=== PATIENT | male | born 1950 | race Caucasian/White ===

== ENCOUNTER 2017-08-13 13:15 | Day surgery (SDC) | payer MEDICARE ==
[~2017-08-13] VITALS: Ht 167.6 cm; Wt 79.0 kg
[~2017-08-13 13:15] MED LIST: ASPI81CH; CLON1; CYCL10; FAMO10; OXYC10ER
== END 2017-08-13 15:58 | disposition home or self-care (01) ==
LOC: ORSCSDS 13:15
PROVIDERS: Surgery
PROC: 0DJD8ZZ Inspection of Lower Intestinal Tract, Via Natural or Artificial Opening Endoscopic (ICD-10-PCS; principal; 2017-08-13 14:30)
DX: Z12.11 Encounter for screening for malignant neoplasm of colon (principal); F32.9 Major depressive disorder, single episode, unspecified; F41.9 Anxiety disorder, unspecified; E78.5 Hyperlipidemia, unspecified; I10 Essential (primary) hypertension; Z79.899 Other long term (current) drug therapy
CPT/HCPCS: J7120

== ENCOUNTER 2018-10-15 08:56 | Inpatient (IN) | payer MEDICARE, OTHER ==
[~2018-10-15] VITALS: Ht 170.2 cm; Wt 83.6 kg
[~2018-10-15 08:56] MED LIST changes: -ASPI81CH; +Aspirin EC81 MG PO; -CLON1; -CYCL10; +CYCL10 PO; -FAMO10; -OXYC10ER; +OXYC10TA19 PO
[2018-10-15 10:08] LABS: BASOPHILS ABSOLUTE AUTO 0.05 K/mm3 (0.00-0.23); BASOPHILS PERCENT AUTO 0 % (0-2); EOSINOPHILS PERCENT AUTO 0 % (0-6); Hematocrit 45.5 % (37.0-53.0); Hemoglobin 15.8 g/dL (13.5-17.5); IMMATURE GRAN ABSOLUTE AUTO 0.16 K/mm3 (0.00-0.10); IMMATURE GRAN PERCENT AUTO 1 % (0-1); LYMPHOCYTES PERCENT AUTO 4 % (21-46); MONOCYTES ABSOLUTE AUTO 0.98 K/mm3 (0.16-1.47); MONOCYTES PERCENT AUTO 4 % (4-13); Mean Corpuscular HGB 30.1 pg (26.0-34.0); Mean Corpuscular HGB Conc 34.7 g/dL (31.5-36.5); Mean Corpuscular Volume 87 fL (80-100); Mean Platelet Volume 10.9 fL (9.1-12.4); NEUTROPHILS ABSOLUTE AUTO 22.69 K/mm3 (1.96-9.15); NEUTROPHILS PERCENT AUTO 92 % (41-73); Platelet Count 190 K/mm3 (150-400); RDW Coefficient Variation 11.8 % (11.7-14.2); RDW Standard Deviation 37.3 fL (35.1-46.3); Red Blood Cell Count 5.25 M/mm3 (4.30-5.90); White Blood Cell Count 24.78 K/mm3 (4.00-11.30)
[2018-10-15 10:18] LABS: Alanine Aminotransfer (ALT/SGP 26 U/L (12-78); Albumin, Blood 3.9 g/dL (3.4-5.0); Albumin/Globulin Ratio 1.2 (0.8-1.8); Alk Phos 45 U/L (50-136); Anion Gap 9 mmol/L (6-16); Aspartate Aminotrans (AST/SGOT 23 U/L (12-37); Bilirubin, Total 1.7 mg/dL (0.1-1.0); Blood Urea Nitrogen 11 mg/dL (8-24); Bun/Creatinine Ratio 16.6 (12.0-20.0); CO2, Blood 27 mmol/L (21-32); Calcium, Blood 8.4 mg/dL (8.5-10.1); Chloride, Blood 97 mmol/L (98-108); Creatinine, Blood 0.66 mg/dL (0.60-1.20); Globulin, Blood 3.2 g/dL (2.2-4.0); Glomerular Filtration Rate >60 (60-); Glucose, Blood 166 mg/dL (70-99); Potassium, Blood 3.9 mmol/L (3.5-5.5); Sodium, Blood 133 mmol/L (136-145); Total Protein, Blood 7.1 g/dL (6.4-8.2); Troponin I 0.208 ng/mL (0.000-0.040)
[2018-10-15] MEDS ORDERED: CLON1 PO (12:51)
[2018-10-15] MEDS ORDERED: FAMO20 PO (12:52)
[2018-10-15] MEDS ORDERED: CITA20 PO (12:54)
[2018-10-15] MEDS ORDERED: TAMS.4ER PO (12:54)
[2018-10-15] MEDS ORDERED: BACL10 PO (13:46)
[2018-10-15] MEDS ORDERED: Milk Thistle500 MG PO (13:47)
[2018-10-15] MEDS ORDERED: Fish Oil 10001000 MG PO (13:47)
[2018-10-15] MEDS ORDERED: CYCL10 PO (15:45)
--- NOTE | 2018-10-15 16:15 | NUR ---
Echocardiogram completed.
--- NOTE | 2018-10-15 18:51 | NUR ---
PT TRANSFERRED TO ICU 12 FROM PCU 6 AFTER HAVING KARINA DRAIN PLACED. DARK RED DRAINAGE NOTED. ABDOMEN FIRM AND TENDER. PT ALSO C/O RIGHT SHOULDER PAIN. AT BEDSIDE. VSS AT THIS TIME. 1 IV NOTED. WEDDING PHOTOGRAPHER AWARE.
--- NOTE | 2018-10-15 19:26 | NUR ---
ASSUMED PT CARE AT 1900; BEDSIDE REPORT GIVEN PT CAME TO ICU POST PERCUTANEOUS CHOLECYSTOSTOMY. DRAIN IN PLACE AND DRAINING MODERATE AMOUNTS OF SANGUINEOUS FLUID. PT CURRENTLY BEING MEDICATED BY DAY RN WITH FENTANYL FOR ABDOMINAL AND RIGHT SHOULDER PAIN. PT HAS AN ICE PACK TO RIGHT SHOULDER. PT DENIES ANY CHEST PAIN; AND STATES HE HASN'T HAD ANY CHEST PAIN AT ALL. PT IS ALERT AND ORIENTED AND ABLE TO MAKE NEEDS KNOWN. AT BEDSIDE. PT HAS BEEN PLEASANT AND COOPERATIVE WITH CARE. PT STATES HE IS VERY HUNGRY BUT IS NPO STATUS. WILL CALL DR. STRICKLAND D/T NO AVAILABLE NOTE REGARDING ANY CARDIOLOGY INTERVENTIONS OR GOING TO IRON ASSORTER IN THE AM.
--- NOTE | 2018-10-15 19:45 | NUR ---
PT C/O SEVERE ABDOMINAL PAIN; STATED FENTANYL 25MCG WAS UNEFFECTIVE. MEDICATED WITH ANOTHER 25MCG OF FENTANYL ORDERS STATED 25-50MCG Q4HRS PRN; PLACED CALL TO DAVID SALGADO NP WHO GAVE ORDERS TO INCREASE FREQUENCY TO Q2HRS PRN.
--- NOTE | 2018-10-15 20:08 | NUR ---
PT CONTINUES WITH SIGNIFICANT PAIN. VERY RESTLESS IN BED; NEEDING TO SIT ON THE SIDE OF BED, TRYING TO WALK AROUND TO RELIEVE HIS PAIN. CALLED DAVID SALGADO NP AGAIN IN REGARDS TO SIGNIFICANT PAIN THAT HAS BEEN UNRELIEVED BY 50MCG OF FENTANYL IN THE LAST HOUR. INFORMED DAVID THAT DRAIN HAS BEEN DRAINING, PT'S PAIN ISN'T ANY WORSE OR BETTER SINCE DRAIN HAS BEEN PLACED, AND THAT THE PLAN IS TO REMOVE GALLBLADDER AFTER PT GOES TO [employer]PER[employer]OR FILES WHEN WBC IS LESS THAN 20. NEW ORDERS TO D/C FENTANYL AND GIVE DILAUDID 0.5-1MG Q2HRS PRN PAIN. WILL CONTINUE TO MONITOR FOR EFFECTIVENESS REGARDING PAIN MANAGEMENT INTERVENTIONS.
--- NOTE | 2018-10-15 21:21 | NUR ---
CALL PLACED TO DAVID SALGADO NP REGARDING PT'S CONSTANT PAIN WITH MINIMAL RELIEF FROM 1MG OF DILAUDID. PT IS ABLE TO TALK IN COMPLETE SENTENCES NOW AND STATES THAT HIS PAIN HAS GONE FROM 10/10 TO 7/10; HOWEVER, GRIMACING NOTED, AND PT IS STILL GUARDING ABDOMEN. GAVE PT A PILLOW TO SPLINT WITH WHILE BREATHING HE IS NOTED TO HAVE RAPID, SHALLOW BREATHING WITH OXYGEN SATURATIONS DECREASING TO LOW 87%. ENCOURAGED PT TO TAKE SLOW, DEEP BREATHS. HR REMAINS ELEVATED IN THE 110'S WITH BP SLOWLY INCREASING AND CURRENTLY SBP'S IN THE 150-160'S. AWAITING CALL BACK FROM DAVID REGARDING PAIN MANAGEMENT INTERVENTION.
--- NOTE | 2018-10-15 22:01 | NUR ---
DAVID BAZAN CALLED BACK AND REFERRED ME TO CALL GENERAL SURGEON REGARDING INCREASED, UNRELIEVED PAIN. CALLED DR. NETTLES AND UPDATED REGARDING PT'S UNCONTROLLED PAIN AND ALL INTERVENTIONS ATTEMPTED. UPDATED REGARDING MODERATE AMOUNTS OF SANGUINEOUS DRAINAGE; 200CC TOTAL FROM POST PROCEDURE TO 2100 WHEN IT WAS DRAINED. READ HEMODYNAMIC REPORT REGARDING DRAIN PLACEMENT AND CONFIRMATION OF DRAIN, WELL CONFIRMED THAT THERE WASN'T ANY DOCUMENTATION REGARDING OUTPUT FROM PLACEMENT OF DRAIN DURING PROCEDURE. NEW ORDERS FROM DR. NETTLES FOR SOAPING MACHINE BACK TENDER PUMP OF DILAUDID PER HIS PROTOCOL ORDERS FOR PATIENTS WHO ARE OVER THE AGE OF 64. CALLED SURGICAL FLOOR FOR COPY OF ORDERS. ORDERS WERE SENT AND ENTERED. WAITING ON PHARMACY TO CALL IN REGARDS TO SOAPING MACHINE BACK TENDER BEING READY.
--- NOTE | 2018-10-15 23:31 | NUR ---
ELISA SANCHEZ ASSISTED WITH SETTING UP FLY MAKER PUMP AND PROGRAMMING FLY MAKER ORDERS FOR DILAUDID. ELISA SANCHEZ VERIFIED PROCESS FROM START TO FINISH. PT WAS MEDICATED WITH ANOTHER 1MG OF DILUADID AT 2220 WHEN HE WAS DUE FOR PAIN MEDICATION FROM DAVID SALGADO NP ORDERS D/T WAIT TIME FOR FLY MAKER MEDICATION AND SET UP TIME. PT APPEARED MORE RELAXED AFTER ADMINISTRATION; HE WAS ABLE TO DEEP BREATHE WITHOUT ANY PAIN, HIS HR DECREASED TO LOW 100'S, AND HIS RESP RATE DECREASED FROM 30'S TO 20'S. PT VERBALIZED HIS RELIEF AND STATED HIS PAIN WENT FROM A 9/10 TO A 7/10. AFTER SET UP OF FLY MAKER PUMP; PT RECEIVED A LOADING DOSE OF 0.4MG. AFTER ABOUT 15 MINUTES OF FLY MAKER PUMP CONNECTED TO PT; PT CLAIMED HIS PAIN LEVEL WAS 2/10. PT HAS CONTROL OF FLY MAKER CONTROLLER; NO CONTINUOUS RATE PROGRAMMED. EDUCATED REGARDING HOW TO ADMINISTER MEDICATION AND THE PURPOSE OF FLY MAKER PUMP. PT VERBALIZED UNDERSTANDING AND STATED HE HAD ONE IN THE PAST AFTER HIS BACK SURGERIES. PT WAS ABLE TO DEMONSTRATE WHAT BUTTON TO PUSH WHEN HE NEEDED IT. AFTER ABOUT 30 MINUTES OF FLY MAKER PUMP CONNECTED PT WAS SOUND ASLEEP; HOWEVER, HE IS EASILY AROUSABLE. WILL CONTINUE TO MONITOR PAIN MANAGEMENT AND EFFECTIVENESS.
--- NOTE | 2018-10-16 01:03 | NUR ---
PT CONTINUES TO BE EASY TO AROUSE. DENIES ANY PAIN. WIPED OFF NITROQUICK OINMENT FROM LEFT UPPER CHEST D/T BLOOD PRESSURES SLOWLY DECREASING WITH MAP'S AROUND 60-65. INFORMED PT TO NOTIFY ME WITH ANY COMPLAINTS OF CHEST PAIN; PT ABLE TO VERBALIZE.
[2018-10-16 04:11] LABS: BASOPHILS ABSOLUTE AUTO 0.07 K/mm3 (0.00-0.23); BASOPHILS PERCENT AUTO 0 % (0-2); EOSINOPHILS PERCENT AUTO 0 % (0-6); Hematocrit 42.4 % (37.0-53.0); Hemoglobin 14.4 g/dL (13.5-17.5); IMMATURE GRAN ABSOLUTE AUTO 0.33 K/mm3 (0.00-0.10); IMMATURE GRAN PERCENT AUTO 1 % (0-1); LYMPHOCYTES ABSOLUTE AUTO 1.07 K/mm3 (0.84-5.20); LYMPHOCYTES PERCENT AUTO 4 % (21-46); MONOCYTES ABSOLUTE AUTO 0.97 K/mm3 (0.16-1.47); MONOCYTES PERCENT AUTO 4 % (4-13); Mean Corpuscular HGB 30.8 pg (26.0-34.0); Mean Corpuscular Volume 91 fL (80-100); Mean Platelet Volume 11.1 fL (9.1-12.4); NEUTROPHILS ABSOLUTE AUTO 24.39 K/mm3 (1.96-9.15); NEUTROPHILS PERCENT AUTO 91 % (41-73); Platelet Count 147 K/mm3 (150-400); RDW Coefficient Variation 12.5 % (11.7-14.2); RDW Standard Deviation 40.5 fL (35.1-46.3); Red Blood Cell Count 4.68 M/mm3 (4.30-5.90); White Blood Cell Count 26.83 K/mm3 (4.00-11.30)
[2018-10-16 04:33] LABS: Alanine Aminotransfer (ALT/SGP 24 U/L (12-78); Albumin, Blood 3.3 g/dL (3.4-5.0); Albumin/Globulin Ratio 1.1 (0.8-1.8); Alk Phos 35 U/L (50-136); Anion Gap 6 mmol/L (6-16); Aspartate Aminotrans (AST/SGOT 20 U/L (12-37); Bilirubin, Total 3.3 mg/dL (0.1-1.0); Blood Urea Nitrogen 16 mg/dL (8-24); Bun/Creatinine Ratio 16.2 (12.0-20.0); CO2, Blood 28 mmol/L (21-32); Chloride, Blood 100 mmol/L (98-108); Creatinine, Blood 0.99 mg/dL (0.60-1.20); Globulin, Blood 2.9 g/dL (2.2-4.0); Glomerular Filtration Rate >60 (60-); Glucose, Blood 118 mg/dL (70-99); Potassium, Blood 4.4 mmol/L (3.5-5.5); Sodium, Blood 134 mmol/L (136-145); Total Protein, Blood 6.2 g/dL (6.4-8.2)
--- NOTE | 2018-10-16 05:59 | NUR ---
END OF SHIFT SUMMARY PT CONTINUES ON RESEARCH NURSE DILAUDID PUMP WITH SIGNIFICANT IMPROVEMENT; PT'S PAIN LEVEL IS CURRENTLY AT 2/10. PT ABLE TO DEMONSTRATE ACCURATE USE OF RESEARCH NURSE PUMP. HOWEVER, HE DID MAKE A COUPLE VERBAL STATEMENTS REGARDING NOT WANTING TO PUSH IT TOO MUCH BECAUSE HE DIDN'T WANT TO "LOSE IT"; EDUCATED PT THAT HE WASN'T GOING TO LOSE THE PAIN MEDICATION AND HE COULD PRESS IT EVERY TEN MINUTES IF NEEDED DUE TO PAIN; PT VERBALIZED UNDERSTANDING. CLEARED END OF SHIFT TOTALS FROM RESEARCH NURSE WITH ELISA CHIRINOS. PERCUTANEOUS CHOLECYSTOSTOMY STILL IN PLACE AND DRAINING MODERATE AMOUNTS OF SANGUINEOUS DRAINAGE WITH A YELLOW TINT NOTED TO THE DRAINAGE BAG; TOTAL OF 400CC COUNTED FOR THIS SHIFT. ABDOMEN REMAINS MODERATELY DISTENDED, FIRM AND TENDER UPON PALPATION; MAINLY TO RUQ, BUT DIFFUSE TENDERNESS NOTED WELL. PT STATES HE HASN'T HAD A BM IN 3 DAYS. ENCOURAGED PT TO BSC TO ATTEMPT BM; PT WAS UNSUCCESSFUL, BUT WAS ABLE TO VOID. PT DISPLAYED URINARY RETENTION ISSUES T/O SHIFT WITH MINIMAL AMOUNTS VOIDED. STATES HE TAKES FLOMAX AT HOME. WILL PASS ON TO DAY SHIFT RN REGARDING ADDRESSING BOWEL CARE MEDS AND FLOMAX WITH PHYSICIAN. WILL CONTINUE TO MONITOR UNTIL REPORT IS HANDED OFF TO ONCOMING RN.
--- NOTE | 2018-10-16 15:49 | NUR ---
PT IS A/O ON MINER HELPER DILAUDID GTT WITH PAIN CURRENTLY MANNAGED. PT NOTED SOME ABD BLOTTING AND IS HAVING PAIN WITH MOVEMENT, BUT IS MANNAGED PER PT WITH MINER HELPER. PT VS NOTED. KARINA DRAIN ON R SITE IS PATENT AND DRAINING BLOODY/BILE COLORED DRAINAGE. PT IS NOT HAVING SEVER DISTRESS AND IS ABLE TO MOVE AND TALK WHILE LEFT ALONE. PT HAS PAS. IVF LR AT 100ML/HOUR WITH TKO NS AND MINER HELPER FLUIDS. PT IS IN NO RESP DISTRESS AND HAVE LOWERED O2 AND WILL CONSIDER D/C LATER. PT HAS BEEN UP TO BSC WITH STANDBY ASSIST TO VOID.
--- NOTE | 2018-10-16 18:56 | NUR ---
PT IS RESTING WELL THIS DAY BUT CONT. TO HAVE SOME PAIN AND IS ALSO HAVING PO PAIN MEDS ADDED. DRAIN CONT TO LOOK BLOODY BUT IS BILE COLOR IN NATURE ALSO. VS AND I/O NOTED.
--- NOTE | 2018-10-16 23:17 | NUR ---
ASSUMED PT CARE AT 1915 PT SITTING UP IN BED TALKING WITH FAMILY AT CHANGE OF SHIFT. APPEARS IN GOOD SPIRITS. CONTINUES ON VACUUM CLEANER MECHANIC DILAUDID; PT STATES IT HAS BEEN EFFECTIVE WITH MANAGING PAIN. PT STATED HE RECEIVED A DOSE OF NORCO TO HELP WITH THE TRANSITION OFF THE PUMP; HOWEVER, IT UPSET HIS STOMACH. EDUCATED HIM TO ENSURE HE EATS SOMETHING AT LEAST 30 MINUTES PRIOR TO TAKING NORCO; PT VERBALIZED UNDERSTANDING. PERCUTANEOUS CHOLECYSTOSTOMY DRAIN IN PLACE WITH WITH MINIMAL AMOUNTS OF SANGUINEOUS DRAINAGE WITH YELLOW RESIDUAL NOTED TO BAG. EDUCATED PT REGARDING SELF CARE WITH DRAINAGE BAG AND THAT HE WOULD BE THE ONE EMPTYING IT TONIGHT WITH VERBAL DIRECTIONS AND GUIDANCE FROM ME. PT DEMONSTRATED VERBAL UNDERSTANDING. NO SIGNIFICANT CHANGES AT THIS TIME. CALL LIGHT IS WITHIN REACH. PT ABLE TO MAKE NEEDS KNOWN.
[2018-10-17 04:47] LABS: BASOPHILS ABSOLUTE AUTO 0.03 K/mm3 (0.00-0.23); BASOPHILS PERCENT AUTO 0 % (0-2); EOSINOPHILS ABSOLUTE AUTO 0.05 K/mm3 (0.00-0.68); EOSINOPHILS PERCENT AUTO 0 % (0-6); Hemoglobin 12.5 g/dL (13.5-17.5); IMMATURE GRAN PERCENT AUTO 1 % (0-1); LYMPHOCYTES ABSOLUTE AUTO 1.03 K/mm3 (0.84-5.20); LYMPHOCYTES PERCENT AUTO 7 % (21-46); MONOCYTES ABSOLUTE AUTO 0.58 K/mm3 (0.16-1.47); MONOCYTES PERCENT AUTO 4 % (4-13); Mean Corpuscular HGB 30.6 pg (26.0-34.0); Mean Corpuscular HGB Conc 33.8 g/dL (31.5-36.5); Mean Corpuscular Volume 91 fL (80-100); Mean Platelet Volume 11.2 fL (9.1-12.4); NEUTROPHILS ABSOLUTE AUTO 14.15 K/mm3 (1.96-9.15); NEUTROPHILS PERCENT AUTO 89 % (41-73); Platelet Count 116 K/mm3 (150-400); RDW Coefficient Variation 12.1 % (11.7-14.2); RDW Standard Deviation 40.9 fL (35.1-46.3); Red Blood Cell Count 4.08 M/mm3 (4.30-5.90); White Blood Cell Count 15.94 K/mm3 (4.00-11.30)
[2018-10-17 05:02] LABS: Albumin, Blood 2.8 g/dL (3.4-5.0); Anion Gap 2 mmol/L (6-16); Blood Urea Nitrogen 14 mg/dL (8-24); Bun/Creatinine Ratio 18.4 (12.0-20.0); CO2, Blood 34 mmol/L (21-32); Calcium, Blood 8.3 mg/dL (8.5-10.1); Chloride, Blood 99 mmol/L (98-108); Creatinine, Blood 0.76 mg/dL (0.60-1.20); Glomerular Filtration Rate >60 (60-); Glucose, Blood 140 mg/dL (70-99); Phosphorus, Blood 1.7 mg/dL (2.5-4.9); Potassium, Blood 3.8 mmol/L (3.5-5.5); Sodium, Blood 135 mmol/L (136-145)
--- NOTE | 2018-10-17 05:28 | NUR ---
END OF SHIFT SUMMARY PT HAS REMAINED PLEASANT AND COOPERATIVE T/O SHIFT. PAIN HAS BEEN WELL CONTROLLED AND MANAGED. CLEARED 1MG FROM [employer] SAL[employer] FOR ENTIRE SHIFT. OFFERED PT NORCO INSTEAD OF CONTINUING WITH LIFE INSURANCE SALES TO SEE IF WE COULD TRANSITION HIM AND HE STATED HE WOULD PREFER TO WAIT UNTIL AFTER BREAKFAST IT UPSET HIS STOMACH LAST TIME. ABDOMEN CONTINUES TO BE DISTENDED, FIRM, AND TENDER UPON PALPATION. ADMINISTERED MOM AT HS ALONG WITH COLACE AND SENNA; HOWEVER, UNEFFECTIVE. PT HAS BEEN UP TO THE BEDSIDE COMMODE MULTIPLE TIMES TO ATTEMPT BM; HOWEVER, WAS ONLY ABLE TO PASS GAS AND URINATE. NO C/O CHEST PAIN. LR CONTINUES AT 100MLS/HR VIA POWERGLIDE TO HANY. PT REQUIRED 2L OF OXYGEN T/O NIGHT D/T OXYGEN SATURATIONS DECREASING TO HIGH 80'S WHEN HE SLEEPS; DOES NOT REQUIRE OXYGEN WHILE AWAKE. CALL LIGHT WITHIN REACH; PT ABLE TO MAKE HIS NEEDS KNOWN; WILL CONTINUE TO MONITOR UNTIL REPORT IS HANDED OFF TO ONCOMING RN.
--- NOTE | 2018-10-17 09:00 | NUR ---
CARE ASSUMED CARE AND REPORT ASSUMED FROM VENITA PÉREZ. PT SITTING UP IN BED. C/O MILD PAIN TO ABDOMEN ALONG WITH DISTENTION. DILAUDID PIPE MAKER FOR USE; PT AWARE OF HOW TO USE IT. LR INFUSING AT 100 ML/HR PER ORDER. VSS. BP 130S/70S. NSR, HR 70S. ABLE TO STAND AT BEDSIDE AND VOID IN URINAL. WILL CONTINUE TO MONITOR.
--- NOTE | 2018-10-17 11:49 | NUR ---
REASSESSMENT INSIGHTS STRATEGIST DISCONTINUED. PT TOLERATING SITTING IN CHAIR. OXYCODONE PO GIVEN FOR PAIN CONTROL. VSS. NSR, HR 60-70S. AFEBRILE. PT AMBULATORY IN ROOM WITH MINIMAL ASSISTANCE. MIV DISCONTINUED. PT C/O MILD NAUSEA AFTER BREAKFAST; ZOFRAN GIVEN AND NAUSEA IMPROVED. WILL CONTINUE TO MONITOR.
--- NOTE | 2018-10-17 15:53 | NUR ---
REASSESSMENT PT AMBULATED WITH WALKER TO SHOWER AND WAS ABLE TO SHOWER WITHOUT ASSISTANCE. VSS. NSR, HR 70S. SITTING UP IN BED. DRAIN IN RLQ DRAINING WELL. WILL CONTINUE TO MONITOR.
--- NOTE | 2018-10-17 17:41 | NUR ---
SHIFT SUMMARY GAS FURNACE INSTALLER DISCONTINUED TODAY AND MIV DISCONTINUED. RECEIVED SHOWER AND HAD NO DIFFICULTY AMBULATING WITH WALKER. VSS ENTIRE SHIFT. RECIEVED OXUYCODONE PO NEEDED. WILL GIVE BEDSIDE HANDOFF REPORT TO NACHO RN.
--- NOTE | 2018-10-17 19:30 | NUR ---
ASSUMED PT CARE AT 1915 PT RESTING IN BED, ALERT AND ORIENTED, AND ABLE TO MAKE NEEDS KNOWN. DRAIN IN PLACE AND CONTINUES TO DRAIN MODERATE AMOUNTS OF SANGUINEOUS DRAINAGE WITH YELLOW RESIDUAL NOTED TO BAG. PT TRANSITIONED FROM POLITICAL SCIENCE FACULTY MEMBER PUMP OF DILAUDID TO ORAL OXYCODONE, WHICH HE STATES HAS BEEN EFFECTIVE MANAGING HIS PAIN; STATES HE IS A 2/10 CURRENTLY. GOAL IS TO DISCHARGE HOME TOMORROW. WILL CONTINUE DRAIN MANAGEMENT EDUCATION. NO SIGNIFICANT CHANGES TO REPORT AT THIS TIME.
--- NOTE | 2018-10-18 06:40 | NUR ---
END OF SHIFT SUMMARY PAIN HAS BEEN WELL MANAGED T/O SHIFT. REQUESTED ONE PRN OXYCODONE 10MG PER ORDERS AT 0430. CHOLECYSTOSTOMY DRAIN CONTINUES TO DRAIN MODERATE AMOUNTS OF SANGUINEOUS MIXED WITH YELLOW/BILE DRAINAGE. PT HAS BEEN EDUCATED REGARDING DRAIN CARE AND IS ABLE TO VERBALIZE, WELL DEMONSTRATE UNDERSTANDING. PT HAS BEEN INDEPENDENT WITH REPOSITIONING T/O NIGHT. CALL LIGHT LEFT WITHIN REACH FOR OTHER NEEDS. WILL CONTINUE TO MONITOR UNTIL REPORT IS HANDED OFF TO ONCOMING RN.
--- NOTE | 2018-10-18 07:54 | NUR ---
ASSUMED CARE NOTE REPORT RECEIVED FROM ELISA NATHAN. BEDSIDE ROUNDING DONE. PT SITTING UP IN BED. PT VERY TALKATIVE. CHOLECYSTOSTOMY DRAIN EMPTIED BY PT WITH EDUCATION AND INSTRUCTION PROVIDED BY THIS RN. PT ALERT AND ORIENTED, COOPERATIVE WITH CARE. PT DENIES ANY PAIN OR DISCOMFORT AT THIS TIME, REQUESTING ONLY 1 TABLET OF HIS OXYCODONE WHEN IT IS DUE NEXT. CALL LIGHT IN REACH. WILL CONT TO MONITOR PT.
--- NOTE | 2018-10-18 08:10 | NUR ---
DR CRUZ ROUNDS DR CRUZ ROUNDED, PLAN FOR PT TO BE D/C. AWAITING ORDERS. NO FURTHER CHANGES TO PLAN OF CARE AT THIS TIME. WILL CONT TO MONITOR PT.
[2018-10-18] MEDS ORDERED: ASPI81CH PO (09:13)
[2018-10-18] MEDS ORDERED: Lopressor 25 mg25 MG PO (09:17)
[2018-10-18] MEDS ORDERED: Augmentin 875-1 EACH PO (09:18)
--- NOTE | 2018-10-18 10:32 | NUR ---
CALL TO DR DEEPA RICKETTS, RN PLACED CALL TO DR ARENAS REGARDING APPROVAL FOR D/C. PER DR ARENAS PT CLEAR FOR D/C HOME WITH PLAN TO F/U WITH DR NETTLES WITHIN 2 WEEKS.
--- NOTE | 2018-10-18 12:16 | NUR ---
D/C NOTE PT D/C HOME WITH DRIVING. D/C PAPERWORK REVIEWED WITH PT AND , PT VERBALIZED UNDERSTANDING. PT INFORMED THAT PRESCRIPTIONS FAXED TO PREFERRED PHARMACY AT [facility] IN [place], PT'S REPORTED THAT SHE ALREADY PICKED THEM UP ON HER WAY IN. PT AND EDUCATED AND INSTRUCTED ON CHOLECYSTOSTOMY DRAIN MANAGEMENT, RETURN DEMONSTRATION PERFORMED. PT PROVIDED WITH CLEAN CANISTER TO EMPTY CHOLECYSTOSTOMY DRAIN CONTENTS INTO AND MEASURE PRN. PT INFORMED OF F/U APPOINTMENTS WITH DR NETTLES AND WARD NURSE, PT VERBALIZED UNDERSTANDING. PT INFORMED OF NEED TO SCHEDULE F/U APPOINTMENT WITH PCP JENNY, PT VERBALIZED UNDERSTANDING AND INTENTION TO DO SO FIRST THING Sunday. POWERGLIDE D/C WITHOUT EVENT, CATHETER INTACT. PT ASSISTED WITH DRESSING AND INTO WHEELCHAIR. PT ESCORTED TO HOSPITAL ENTRANCE BY YVONNE MAYORGA VIA WHEELCHAIR. ALL BELONGINGS WITH PT AT TIME OF D/C. NO S/SX DISTRESS AT TIME OF D/C.
[2018-10-29] MEDS ORDERED: FAMO20 PO (10:58)
[2018-10-29] MEDS ORDERED: CITA20 PO (10:58)
[2018-10-29] MEDS ORDERED: CLON1 PO (10:58)
[2018-10-29] MEDS ORDERED: FURO40 PO (10:59)
[2018-10-29] MEDS ORDERED: TAMS.4ER PO (10:59)
[2018-10-29] MEDS ORDERED: BACL10 PO (11:00)
[2018-10-29] MEDS ORDERED: OXYC10TA19 PO (11:01)
[2018-10-29] MEDS ORDERED: FISH OIL PO (11:16)
[2018-10-29] MEDS ORDERED: Milk Thistle150 MG PO (11:20)
[2018-10-29] MEDS ORDERED: SAW PALMETTO PO (11:20)
[2018-10-29] MEDS ORDERED: L-Lysine500 M1 PO (11:21)
[2018-10-29] MEDS ORDERED: Citrucel500 MG PO (11:21)
[2018-10-29] MEDS ORDERED: Nizoral120 M1 TOP (11:22)
[2018-10-29] MEDS ORDERED: NARCAN (11:24)
== END 2018-10-18 12:15 | disposition home or self-care (01) | DRG 872 ==
LOC: ER 08:56 → PCU 12:57 → ICUW 15:11
PROVIDERS: Emergency Medicine; ADMIT Family Medicine
PROC: 0F9430Z Drainage of Gallbladder with Drainage Device, Percutaneous Approach (ICD-10-PCS; principal; 2018-10-16)
DX: A41.9 Sepsis, unspecified organism (principal); K81.0 Acute cholecystitis; E87.2 Acidosis; I24.8 Other forms of acute ischemic heart disease; E87.1 Hypo-osmolality and hyponatremia; Z79.82 Long term (current) use of aspirin; R65.20 Severe sepsis without septic shock; I10 Essential (primary) hypertension; F41.8 Other specified anxiety disorders; E78.5 Hyperlipidemia, unspecified; I73.00 Raynaud's syndrome without gangrene; R74.8 Abnormal levels of other serum enzymes; D69.6 Thrombocytopenia, unspecified; E83.39 Other disorders of phosphorus metabolism; G14 Postpolio syndrome
CPT/HCPCS: 36415; 47490; 71045; 74177; 80053; 80069; 83605; 83690; 84484; 85025; 87040; 93005; 93010; 93306; 96361-59; 96365-59; 96375-59; 96376-59; 99152; 99153; 99285-25; A9270-GY; C1729; C1751; C1769; C1894; J0360; J0780; J1170; J1650; J2060; J2250; J2405; J2543; J3010; J7030; J7040; J7050; J7120; Q9967

== ENCOUNTER 2018-10-31 06:01 | Day surgery (SDC) | payer MEDICARE, SELFPAY ==
[~2018-10-31] VITALS: Ht 167.6 cm; Wt 77.3 kg
[~2018-10-31 06:01] MED LIST changes: +ASPI81CH PO; +Augmentin 875-1 EACH PO; +BACL10 PO; +CITA20 PO; +CLON1 PO; +Citrucel500 MG PO; +FAMO20 PO; +FISH OIL PO; +FURO40 PO; +Fish Oil 10001000 MG PO; +L-Lysine500 M1 PO; +Lopressor 25 mg25 MG PO; +Milk Thistle150 MG PO; +Milk Thistle500 MG PO; +NARCAN; +Nizoral120 M1 TOP; +SAW PALMETTO PO; +TAMS.4ER PO
--- NOTE | 2018-10-31 06:50 | NUR ---
PT ADMITTED TO [facility]. AGREES WITH PLANNED SURGERY. PT VERY TALKATIVE. LUNG SOUNDS CLEAR.
--- NOTE | 2018-10-31 08:01 | NUR ---
10/31/18 0801 Soco Perez PT BROUGHT TO OR 2. WHEN DR MARTINEZ WAS ABOUT TO INTUBATE THE PT HE NOTICED A MASS IN THE PT THROAT. DR NETTLES IN THE ROOM. THE GLIDE SCOPE WAS BROUGHT IN THE ROOM TO BETTER SEE THE MASS. IT WAS DECIDED BY DR MARTINEZ AND DR NETTLES TO ABORT THE CASE.
--- NOTE | 2018-10-31 09:04 | NUR ---
VERBAL DISCHARGE INSTRUCTIONS COMPLETE. PT ALERT AND ORIENTED. TAKING PO FLUIDS WELL. IV DC'D INTACT.
== END 2018-10-31 09:15 | disposition home or self-care (01) ==
LOC: ORSCMMR 06:01 → ORD 07:30 → ORSCMMR 07:30
DX: K81.2 Acute cholecystitis with chronic cholecystitis (principal); Z53.8 Procedure and treatment not carried out for other reasons
CPT/HCPCS: 93005; 93010; J1100; J2250; J2405; J2543; J2704; J2710; J3010; J7030; J7120

== ENCOUNTER 2018-11-11 06:16 | Day surgery (SDC) | payer MEDICARE, SELFPAY ==
[~2018-11-11] VITALS: Ht 170.2 cm; Wt 77.2 kg
--- NOTE | 2018-11-11 07:49 | NUR ---
11/11/18 [address] POLLACK ORDERS, GAVE 3ML 4% LIDOCAINE NEBULIZER AND 2PUFFS AFRIN EACH NARES JUST BEFORE TAKEN TO OR.
--- NOTE | 2018-11-11 08:16 | NUR ---
11/11/18 0816 Candy Jimenez USED FOR HEMOSTASIS ON SPONGES
--- NOTE | 2018-11-11 09:37 | NUR ---
11/11/18 0937 Danuta Valdez PT VOIDED X1 PRIOR TO DC HOME
== END 2018-11-11 09:30 | disposition home or self-care (01) ==
LOC: ORSCSDS 06:16
PROVIDERS: Otolaryngology
PROC: 0CBR8ZX Excision of Epiglottis, Via Natural or Artificial Opening Endoscopic, Diagnostic (ICD-10-PCS; principal; 2018-11-11 07:30)
DX: C85.11 Unspecified B-cell lymphoma, lymph nodes of head, face, and neck (principal); I10 Essential (primary) hypertension; I25.10 Atherosclerotic heart disease of native coronary artery without angina pectoris; E78.5 Hyperlipidemia, unspecified; K21.9 Gastro-esophageal reflux disease without esophagitis; Z79.899 Other long term (current) drug therapy
CPT/HCPCS: 88305; J0330; J1100; J2250; J2405; J2704; J3010; J7120

== ENCOUNTER 2018-11-20 09:31 | Day surgery (SDC) | payer MEDICARE, OTHER ==
[~2018-11-20] VITALS: Ht 170.2 cm; Wt 78.0 kg
--- NOTE | 2018-11-20 10:38 | NUR ---
Lungs clear right posterior with vibration. Otherwise clear throughout. Pt regular heart rate. Pt slightly pale. Up dated on delay of procedure. Pt at bedside.
--- NOTE | 2018-11-20 13:05 | NUR ---
Pt with stable vs iv removed cath intact left fa. Pt drank 250 ml juice. Biliary drain with light brown fluid draining into the collection bag. Pt spoke with Dr. Madden, pt denies pain.
--- NOTE | 2018-11-20 13:10 | NUR ---
Pt discharged to home then ENT office for previously scheduled appointment. Drain intact with instructions. Pt and verbalize understanding of instructions. Pt drank juice was able to ambulate. VSS Pt via wheelchair then private auto. Pt in good spirits.
== END 2018-11-20 13:45 | disposition home or self-care (01) ==
LOC: MHTC 09:31
DX: T85.698A Other mechanical complication of other specified internal prosthetic devices, implants and grafts, initial encounter (principal); K81.9 Cholecystitis, unspecified; E78.5 Hyperlipidemia, unspecified; K21.9 Gastro-esophageal reflux disease without esophagitis; M54.9 Dorsalgia, unspecified; G89.29 Other chronic pain; N40.0 Benign prostatic hyperplasia without lower urinary tract symptoms; Z88.8 Allergy status to other drugs, medicaments and biological substances; Z79.899 Other long term (current) drug therapy
CPT/HCPCS: 47533; 99152; 99153; C1729; C1769; C1887; J7040; Q9967

== ENCOUNTER → 2019-08-06 | Outpatient (CLI) | payer MEDICARE, OTHER ==
[2019-08-06 18:19] LABS: Bilirubin, Urine Neg (Neg); Blood, Urine Neg (Neg); Glucose Qualitative, Urine Neg (Neg); Ketones, Urine Neg (Neg); Leukocyte Esterase, Urine 1+ (Neg); Nitrite, Urine Neg (Neg); Protein, Urine Neg (Neg); Specific Gravity, Urine 1.005 (1.003-1.022); Urobilinogen, Urine NORM (Normal); pH, Urine 6.5 (5.0-8.0)
[2019-08-06 18:55] LABS: Appearance, Urine Clear (Clear); Color, Urine Pale Yellow (P-Yellow)
[2019-08-06 18:57] LABS: Bacteria Rare /hpf; Red Blood Cells, Urine 0-2 /hpf (0-2); Squamous Epithelial Cells Not Seen /hpf (Few); White Blood Cells, Urine 0-2 /hpf (0-5)
== END | disposition home or self-care (01) ==
LOC: LAB SHORT 15:56 → LAB 15:56
PROVIDERS: Registered Nurse Oncology
DX: R30.0 Dysuria (principal)
CPT/HCPCS: 81001